=== PATIENT | female | born 2000 ===

== ENCOUNTER 2018-09-22 06:54 | Outpatient (CLI) | payer OTHER | END 2018-09-22 07:00 | disposition home or self-care (01) | LOC: LAB 06:54 → MAMO-SONO 08:15 | DX: N63.10 Unspecified lump in the right breast, unspecified quadrant (principal) ==

== ENCOUNTER → 2018-09-22 | Outpatient (CLI) | payer OTHER ==
[~2018-09-22] MED LIST: ATARAX25 MG PO; ZYRTEC10 MG PO
== END | disposition home or self-care (01) ==
LOC: SONOGRAMA 07:47
DX: N63.10 Unspecified lump in the right breast, unspecified quadrant (principal)

== ENCOUNTER 2018-10-24 08:42 | Outpatient (CLI) | payer OTHER | END 2018-10-24 08:44 | disposition home or self-care (01) | LOC: SONOGRAMA 08:42 | DX: N63.10 Unspecified lump in the right breast, unspecified quadrant (principal); N63.20 Unspecified lump in the left breast, unspecified quadrant ==

== ENCOUNTER 2019-01-08 16:52 | Outpatient (CLI) | payer OTHER | END 2019-01-08 17:00 | disposition home or self-care (01) | LOC: LAB 16:52 | DX: N30.91 Cystitis, unspecified with hematuria (principal) ==

== ENCOUNTER 2019-01-18 17:48 | Emergency (ER) | payer OTHER ==
[~2019-01-18] VITALS: Ht 154.9 cm; Wt 46.3 kg
== END 2019-01-18 20:33 | disposition home or self-care (01) ==
LOC: ER 17:48
DX: B34.9 Viral infection, unspecified (principal)

== ENCOUNTER 2019-05-29 15:55 | Outpatient (CLI) | payer OTHER | END 2019-05-29 16:02 | disposition home or self-care (01) | LOC: LAB 15:55 | DX: J11.1 Influenza due to unidentified influenza virus with other respiratory manifestations (principal); R05 Cough ==

== ENCOUNTER 2019-07-11 06:45 | Outpatient (CLI) | payer OTHER | END 2019-07-11 07:09 | disposition home or self-care (01) | LOC: LAB 06:45 | DX: Z34.00 Encounter for supervision of normal first pregnancy, unspecified trimester (principal); Z11.4 Encounter for screening for human immunodeficiency virus [HIV] ==

== ENCOUNTER 2019-12-11 00:28 | Inpatient (IN) | payer OTHER ==
[~2019-12-11] VITALS: Ht 160 cm; Wt 1.8 kg
[2019-12-11] MEDS ORDERED: PRENATAL TABLE1 EAC1 PO (01:36)
[2019-12-11] MEDS ORDERED: FOLIC ACID PO (01:37)
[2019-12-16] MEDS ORDERED: Ferro-Plex CAPLET PO (13:40)
[2019-12-16] MEDS ORDERED: PREPLUS CA-FE1 EACH PO (13:40)
[2019-12-16] MEDS ORDERED: ACETAMINOPHEN325 M1 PO (13:40)
== END 2019-12-16 15:54 | disposition home or self-care (01) | DRG 786 ==
LOC: OBS/DEL 00:28 → LDR 02:55 → O/R 12-13 08:12 → OB/GYN 12-13 10:35
PROVIDERS: ADMIT Specialist
PROC: 4A1HXFZ Monitoring of Products of Conception, Cardiac Rhythm, External Approach (ICD-10-PCS; 2019-12-13)
PROC: 10D00Z1 Extraction of Products of Conception, Low, Open Approach (ICD-10-PCS; principal; 2019-12-13 07:00)
DX: O64.1XX0 Obstructed labor due to breech presentation, not applicable or unspecified (principal); O60.14X0 Preterm labor third trimester with preterm delivery third trimester, not applicable or unspecified; O90.81 Anemia of the puerperium; Z37.0 Single live birth; Z3A.32 32 weeks gestation of pregnancy